=== PATIENT | female | born 1990 | race American Indian/Alaskan Native ===

== ENCOUNTER 2017-11-01 19:40 | Emergency (ER) | payer OTHER, MEDICAID ==
[2017-11-01] MEDS ORDERED: DILAUDID IM ONE (20:30)
[2017-11-01] MEDS ORDERED: ATIVAN IM ONE (20:30)
[2017-11-01] MEDS ORDERED: NORCO 5/325 PO ONE ×2 (20:31→23:26)
[2017-11-01 21:34] LABS: Basophils % (Auto) 0.2 % (0.0-1.8); Eosinophils # (Auto) 0.2 K/mm3 (0.0-0.4); Eosinophils % (Auto) 3.1 % (0.0-4.3); Hematocrit 37.1 % (30.3-42.9); Hemoglobin 12.6 gm/dl (10.1-14.3); Lymphocytes # (Auto) 2.4 K/mm3 (1.2-5.4); Lymphocytes % (Auto) 47.6 % (13.4-35.0); Mean Corpuscular HGB Conc 34 % (30-34); Mean Corpuscular Hemoglobin 32 pg (28-32); Mean Corpuscular Volume 93 fl (79-97); Monocytes # (Auto) 0.3 K/mm3 (0.0-0.8); Monocytes % (Auto) 5.7 % (0.0-7.3); Platelet Count 182 K/mm3 (140-440); Red Cell Distribution Width 12.5 % (13.2-15.2)
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
[2017-11-01 22:15] LABS: BUN/Creatinine Ratio 17; Blood Urea Nitrogen 12 mg/dL (7-17); Calcium 9.3 mg/dL (8.4-10.2); Hemolysis Index 8
--- NOTE | 2017-11-01 22:26 | Cat Scan Report ---
FINAL REPORT PROCEDURE: CT HEAD/BRAIN WO CON TECHNIQUE: Computerized tomography of the head was performed without contrast material. HISTORY: headache COMPARISON: No prior studies are available for comparison. FINDINGS: Brain: Brain density appears normal. No evidence of intracranial hemorrhage. No parenchymal hemorrhage, mass lesions or mass effect are seen. No abnormal extraxial fluid collects or masses are seen. Ventricles: Ventricles are normal size and are midline. Bone Windows: No evidence of skull fracture. Paranasal sinuses: There is mild mucosal thickening in the right and left maxillary sinuses and small air-fluid level suggesting acute sinusitis. The entire maxillary sinuses are not included on this exam. There is also mild patchy mucosal disease anteriorly in the sphenoid sinuses and in several of the mastoid air cells. Visualized portions of the paranasal sinuses otherwise are clear. Mastoid air cells: Clear IMPRESSION: Negative unenhanced CT of the brain. Paranasal sinus disease as described suggesting acute maxillary sinusitis.
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
[2017-11-01] MEDS ORDERED: MORPHINE IM ONE (22:40)
[2017-11-01] MEDS ORDERED: TORADOL IM ONE (22:40)
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
[2017-11-01] MEDS ORDERED: MOTRIN ONE (23:17)
--- NOTE | 2017-11-01 23:17 | XRay Report ---
FINAL REPORT PROCEDURE: XR HAND 2V RT TECHNIQUE: Right hand radiographs, AP and lateral views. CPT 02440 HISTORY: right dorsal hand pain COMPARISON: No prior studies are available for comparison. FINDINGS: There is artifact from a ring on the patient's ring finger which obscures a portion of the proximal phalanx. The hand is otherwise normal in appearance. No fracture or dislocation is seen. No radiopaque foreign bodies are identified. Joint spaces are well preserved. Bone density appears normal. IMPRESSION: Negative exam..
[2017-11-01] MEDS ORDERED: NORCO 5/325 ONE (23:18)
[2017-11-01] MEDS ORDERED: MOTRIN PO ONE (23:26)
[2017-11-02 00:18] VITALS: BP 111/79
== END 2017-11-02 01:36 | disposition home or self-care (01) ==
LOC: ED 19:40
DX: G44.319 Acute post-traumatic headache, not intractable (principal); M54.5 Low back pain; M79.631 Pain in right forearm; J45.909 Unspecified asthma, uncomplicated; V89.2XXA Person injured in unspecified motor-vehicle accident, traffic, initial encounter; Y93.89 Activity, other specified; Y92.89 Other specified places as the place of occurrence of the external cause; Y99.8 Other external cause status
CPT/HCPCS: 36415; 70450; 70486; 72125; 72128; 72131; 73090; 73120; 80048; 84703; 85025; 93005; 93010; 99285; J1885; J2270

== ENCOUNTER 2018-08-23 19:07 | Emergency (ER) | payer MEDICAID, OTHER ==
[2018-08-23 19:40] VITALS: BP 117/84
--- NOTE | 2018-08-23 20:37 | Emergency Department Report ---
ED ENT HPI - General Chief complaint: Sore Throat Stated complaint: THROAT PAIN/LFT EYE PAIN Time Seen by Provider: 08/23/18 19:50 Source: patient Mode of arrival: Ambulatory Limitations: No Limitations - History of Present Illness MD complaint: sore throat -: Gradual Location: throat Severity: moderate Quality: dull Consistency: constant Improves with: none Worsens with: none, swallowing Associated Symptoms: pain with swallowing, sore throat, discharge from ear, rhinorrhea. denies: fever, cough, gum swelling, toothache, tinnitus - Related Data Previous Rx's Medication Instructions Recorded Last Taken Type Ibuprofen [Motrin] 800 mg PO Q8HR PRN #15 tablet 11/02/17 Unknown Rx traMADol [Ultram 50 MG tab] 50 mg PO Q6HR PRN #15 tablet 11/02/17 Unknown Rx Tobramycin 0.3% [Tobrex] 1 applicatio OS Q8HR #1 tube 08/23/18 Unknown Rx Allergies Allergy/AdvReac Type Severity Reaction Status Date / Time No Known Allergies Allergy Unverified 11/01/17 20:03 ED Dental HPI - General Chief complaint: Sore Throat Stated complaint: THROAT PAIN/LFT EYE PAIN Time Seen by Provider: 08/23/18 19:50 Source: patient Mode of arrival: Ambulatory Limitations: No Limitations - Related Data Previous Rx's Medication Instructions Recorded Last Taken Type Ibuprofen [Motrin] 800 mg PO Q8HR PRN #15 tablet 11/02/17 Unknown Rx traMADol [Ultram 50 MG tab] 50 mg PO Q6HR PRN #15 tablet 11/02/17 Unknown Rx Tobramycin 0.3% [Tobrex] 1 applicatio OS Q8HR #1 tube 08/23/18 Unknown Rx Allergies Allergy/AdvReac Type Severity Reaction Status Date / Time No Known Allergies Allergy Unverified 11/01/17 20:03 ED Review of Systems ROS: Stated complaint: THROAT PAIN/LFT EYE PAIN Other details as noted in HPI Constitutional: denies: chills, fever Eyes: denies: eye pain, eye discharge, vision change ENT: denies: ear pain, throat pain Respiratory: denies: cough, shortness of breath, wheezing Cardiovascular: denies: chest pain, palpitations Endocrine: no symptoms reported Gastrointestinal: denies: abdominal pain, nausea, diarrhea Genitourinary: denies: urgency, dysuria, discharge Musculoskeletal: denies: back pain, joint swelling, arthralgia Skin: denies: rash, lesions Neurological: denies: headache, weakness, paresthesias Psychiatric: denies: anxiety, depression Hematological/Lymphatic: denies: easy bleeding, easy bruising ED Past Medical Hx - Past Medical History Previous Medical History?: Yes Hx Hypertension: Yes (During ) Hx Asthma: Yes (childhood asthma) - Surgical History Past Surgical History?: No - Social History Smoking Status: Never Smoker Substance Use Type: None - Medications Home Medications: Home Medications Medication Instructions Recorded Confirmed Last Taken Type Ibuprofen [Motrin] 800 mg PO Q8HR PRN #15 tablet 11/02/17 Unknown Rx traMADol [Ultram 50 MG tab] 50 mg PO Q6HR PRN #15 tablet 11/02/17 Unknown Rx Tobramycin 0.3% [Tobrex] 1 applicatio OS Q8HR #1 tube 08/23/18 Unknown Rx ED Physical Exam - General Limitations: No Limitations General appearance: alert, in no apparent distress - Head Head exam: Present: atraumatic, normocephalic - Eye Eye exam: Present: PERRL, EOMI, other (swelling to the left upper eyelid stye present. No corneal abrasion present.). Absent: scleral icterus, conjunctival injection, nystagmus, periorbital swelling Pupils: Present: normal accommodation - ENT ENT exam: Present: normal exam, normal orophraynx, mucous membranes moist, TM's normal bilaterally - Neck Neck exam: Present: normal inspection, full ROM - Respiratory Respiratory exam: Present: normal lung sounds bilaterally. Absent: respiratory distress, wheezes, rales, rhonchi, chest wall tenderness, accessory muscle use, decreased breath sounds - Cardiovascular Cardiovascular Exam: Present: regular rate, normal rhythm. Absent: systolic murmur, diastolic murmur, rubs, gallop - GI/Abdominal GI/Abdominal exam: Present: soft, normal bowel sounds - Extremities Exam Extremities exam: Present: normal inspection, full ROM, normal capillary refill - Back Exam Back exam: Present: normal inspection. Absent: CVA tenderness (R), CVA tenderness (L) - Neurological Exam Neurological exam: Present: alert, oriented X3 - Psychiatric Psychiatric exam: Present: normal affect, normal mood - Skin Skin exam: Present: warm, dry, intact, normal color. Absent: rash ED Course Vital Signs 08/23/18 19:22 Temperature 99.1 F Pulse Rate 98 H Respiratory 18 Rate Blood Pressure 117/84 O2 Sat by Pulse 98 Oximetry Critical care attestation.: If time is entered above; I have spent that time in minutes in the direct care of this critically ill patient, excluding procedure time. ED Disposition Clinical Impression: Pharyngitis, Stye Disposition: DC- TO HOME OR SELFCARE Is pt being admited?: No Does the pt Need Aspirin: No Condition: Stable Instructions: Stye (ED), Pharyngitis (ED) Referrals: [facility] [Provider Group] - 3-5 Days
[2018-08-23] MEDS ORDERED: DECADRON PO STA (20:42)
[2018-08-23] MEDS ORDERED: BICILLIN L-A IM STA (20:42)
== END 2018-08-23 21:27 | disposition home or self-care (01) ==
LOC: ED 19:07
DX: H00.014 Hordeolum externum left upper eyelid (principal); I10 Essential (primary) hypertension; J45.909 Unspecified asthma, uncomplicated; J02.9 Acute pharyngitis, unspecified
CPT/HCPCS: 87116; 87430; 96372; 99283; J0561; J1100